=== PATIENT | female | born 1970 | race Caucasian/White ===

== ENCOUNTER → 2017-03-21 | Outpatient (REF) | payer OTHER | LOC: M LAB REF 13:13 | PROVIDERS: ATTEND Physician Assistant Medical | DX: N39.0 Urinary tract infection, site not specified (principal) ==

== ENCOUNTER → 2020-08-08 | Outpatient (CLI) | payer OTHER ==
--- NOTE | 2020-08-08 17:17 | REPMRS ---
Patient History The patient states she had a clinical breast exam in 08/11 Baseline Mammogram Family history of breast cancer under age 50 in maternal grandmother. 3D TOMOSYNTHESIS WAS PERFORMED. The Noe Hennessy lifetime risk for breast cancer is 13.3%. Nickolas breast density c. Digital Woman Screen Mammo: August 08, 2020 - Exam #: [id number] Bilateral CC and MLO view(s) were taken. Technologist: Yasmeen Mcguire, Technologist No prior studies available for comparison. FINDINGS: The breast tissue is heterogeneously dense. This may lower the sensitivity of mammography. There is a moderate amount of residual fibroglandular tissue which is fairly symmetric. There is no dominant mass, areas of architectural distortion, or clustered microcalcification typical of malignancy. Assessment: BI-RADS/ACR category 1 mammogram. Negative Mammogram. Recommendation Routine screening mammogram in 1 year (for women over age 40). This mammogram was interpreted with the aid of an FDA-approved computer-aided dectection system. Electronically Signed By: Nahun Wray MD 08/08/20 [id number]
== END ==
LOC: M WHC 15:29
PROVIDERS: ATTEND Registered Nurse Maternal Newborn
DX: Z12.31 Encounter for screening mammogram for malignant neoplasm of breast (principal)

== ENCOUNTER → 2022-08-30 | Outpatient (CLI) | payer OTHER | LOC: M WHC 07:56 | PROVIDERS: ATTEND Nurse Practitioner Primary Care | DX: Z12.31 Encounter for screening mammogram for malignant neoplasm of breast (principal) ==